=== PATIENT | male | born 1970 | race Hispanic/Latino ===

== ENCOUNTER 2018-08-14 06:58 | Outpatient (RCR) | payer BC | END 2018-08-15 | LOC: PT 06:58 | PROVIDERS: ATTEND Specialist | DX: M75.42 Impingement syndrome of left shoulder (principal); M75.41 Impingement syndrome of right shoulder ==

== ENCOUNTER 2018-08-21 07:00 | Outpatient (RCR) | payer BC | END 2018-09-15 | LOC: PT 07:00 | PROVIDERS: ATTEND Specialist | DX: M75.42 Impingement syndrome of left shoulder (principal); M75.41 Impingement syndrome of right shoulder ==

== ENCOUNTER 2020-05-24 20:06 | Emergency (ER) | payer BC, OTHER ==
[~2020-05-24] VITALS: Ht 172.7 cm; Wt 86.2 kg
[2020-05-24] MEDS ORDERED: CYCLOBENZAPRINE HCL 10 MG TAB PO ONE (21:00)
[2020-05-24] MEDS ORDERED: HYDROCODONE/APAP 5MG-325MG TAB PO ONE (21:00)
[2020-05-24] MEDS ORDERED: TYLENOL # 31 EA PO (21:09)
[2020-05-24] MEDS ORDERED: NAPROSYN500 MG PO (21:12)
[2020-05-24] MEDS ORDERED: CYCLOBENZAPRINE10 MG PO (21:13)
[2020-05-24] MEDS ORDERED: CYCLOBENZAPRINE HCL 10 MG TAB ONE (21:26)
[2020-05-24] MEDS ORDERED: HYDROCODONE/APAP 5MG-325MG TAB ONE (21:26)
== END 2020-05-24 21:40 | disposition home or self-care (01) ==
LOC: FSED 20:57
DX: S13.4XXA Sprain of ligaments of cervical spine, initial encounter (principal); R51.9 Headache, unspecified; V43.53XA Car driver injured in collision with pick-up truck in traffic accident, initial encounter; Y92.488 Other paved roadways as the place of occurrence of the external cause
CPT/HCPCS: 99283

== ENCOUNTER → 2020-07-09 | Outpatient (CLI) | payer OTHER ==
[~2020-07-09] MED LIST: COVID-19 VACC, MRNA(MODERNA)/PF 100 MCG/0.5 ML VIAL IM ONE; CYCLOBENZAPRINE10 MG PO; NAPROSYN500 MG PO; TYLENOL # 31 EA PO
== END ==
LOC: VACCPMC 15:08
DX: Z23 Encounter for immunization (principal); Z20.822 Contact with and (suspected) exposure to COVID-19
CPT/HCPCS: 0011A; 91301

== ENCOUNTER → 2020-08-06 | Outpatient (CLI) | payer OTHER | END | disposition home or self-care (01) | LOC: VACCPMC 10:00 | DX: Z23 Encounter for immunization (principal); Z20.822 Contact with and (suspected) exposure to COVID-19 | CPT/HCPCS: 91301 ==